=== PATIENT | female | born 1985 | race American Indian/Alaskan Native ===

== ENCOUNTER 2019-11-15 09:16 | Day surgery (SDC) | payer MEDICAID ==
[2019-11-15] MEDS ORDERED: LACTATED RINGERS 1,000 ML IV SCH (10:00)
[2019-11-15] MEDS ORDERED: ONDANSETRON 4 MG/2 ML INJ ONE (11:10)
[2019-11-15] MEDS ORDERED: ONDANSETRON 4 MG/2 ML INJ IV NR (11:12)
[2019-11-15] MEDS ORDERED: fentaNYL 100 MCG/2 ML INJ IV PRN (11:17)
[2019-11-15] MEDS ORDERED: fentaNYL 100 MCG/2 ML INJ IV ONE (11:17)
[2019-11-15] MEDS ORDERED: FAMOTIDINE 20 MG/2 ML INJ IV NR (11:18)
--- NOTE | 2019-11-15 11:19 | Anesthesia Consultation ---
Anesthesia Consult and Med Hx Date of service: 11/15/19 - Airway Anesthetic Teeth Evaluation: Good ROM Head & Neck: Adequate Mental/Hyoid Distance: Adequate Mallampati Class: Class III Intubation Access Assessment: Possibly Difficult - Pulmonary Exam CTA: Yes - Cardiac Exam Cardiac Exam: RRR - Pre-Operative Health Status ASA Pre-Surgery Classification: ASA2 Proposed Anesthetic Plan: General - Pulmonary Hx Smoking: Yes (marijuana) Hx Respiratory Symptoms: No - Cardiovascular System Hx Hypertension: No (BP elevated in preop possibly 2/2 pain) - Central Nervous System CVA: No - Gastrointestinal Hx Gastroesophageal Reflux Disease: No - Endocrine Hx Renal Disease: No Hx Liver Disease: No Hx Insulin Dependent Diabetes: No Hx Non-Insulin Dependent Diabetes: No Hx Thyroid Disease: No - Other Systems Hx Alcohol Use: Yes (Occas) Hx Substance Use: Yes (Marijuana) Hx Obesity: No - Additional Comments Anesthesia Medical History Comments: + N/V w/ most recent emesis this morning.
--- NOTE | 2019-11-15 11:19 | Anesthesia Day of Surgery ---
Anesthesia Day of Surgery - Day of Surgery Patient Examined: Yes Patient H&P Reviewed: Yes Patient is NPO: Yes
[2019-11-15] MEDS ORDERED: SCOPOLAMINE TRANSDERMAL PATCH 72 HR TD NR (12:00)
[2019-11-15] MEDS ORDERED: MIDAZOLAM 2 MG/2 ML INJ IV NR (12:00)
[2019-11-15] MEDS ORDERED: METHYLERGONOVINE MALEATE 0.2 MG/ML VIAL IM ONE (13:06)
[2019-11-15] MEDS ORDERED: HYDROmorphone 1 MG/1 ML INJ ONE (13:09)
[2019-11-15] MEDS ORDERED: PROPOFOL 200 MG/20 ML VIAL IV ONE (13:09)
[2019-11-15] MEDS ORDERED: ROCURONIUM 50 MG/5 ML INJ IV ONE (13:09)
[2019-11-15] MEDS ORDERED: SUCCINYLCHOLINE CHLORIDE 200 MG/10 ML INJ MDV ONE (13:09)
[2019-11-15] MEDS ORDERED: LIDOCAINE MPF (2%) 20 MG/1 ML VIAL 5 ML ONE (13:36)
[2019-11-15] MEDS ORDERED: PHENYLEPHRINE/NS 1,000 MCG/10 ML SYRINGE (OR USE) IV ONE (13:37)
[2019-11-15] MEDS ORDERED: KETOROLAC 30 MG/1 ML INJ ONE (13:52)
[2019-11-15] MEDS ORDERED: SODIUM CHLORIDE 0.9% 1000 ML 1,000 ML ONE (14:03)
--- NOTE | 2019-11-15 14:04 | Post Operative Note ---
Pre-op diagnosis: Incomplete AB Post-op diagnosis: same Findings: Retroverted uterus. Positive POCs noted in suction. Procedure: D&C suction completion for an incomplete AB at 7 weeks and 2 days. Patient taken to the operating room and prepped draped usual fashion. Bimanual exam was done. A 7 Slovak suction catheter selected. A ring forcep used to grasp the anterior lip of the cervix for stabilization. Cervix was adequately dilated for placement of a 7 Slovak catheter which was done without difficulty. Suction curettage was performed until no further products of conception were able to be suctioned out and no more active bleeding was noted. Bimanual exam was done again the uterus felt firm. Ring forceps removed and the procedure was concluded. Patient tolerated the procedure well. All instrument and lap counts were correct. Patient taken to the recovery room in stable condition. Anesthesia: GETA Surgeon: ANITA ROMERO Estimated blood loss: minimal Pathology: list (POCs) Specimen disposition: to lab Condition: stable Disposition: PACU
--- NOTE | 2019-11-15 14:06 | Discharge Summary ---
Providers - Providers Date of discharge: 11/15/19 Attending physician: ANITA ROMERO Hospitalization Procedure: other (suction D&C for incomplete AB) complications: none (except pt with elevated BP here and in office yesterday. No h/o HTN. PT to f/u in office in 1 week in light of this BP.) Discharge diagnosis: other (s/p D&C for SAB) Condition at discharge: Stable Disposition: DC- TO HOME OR SELFCARE Plan - Discharge Medications Prescriptions: Ibuprofen [Motrin 600 MG tab] 600 mg PO Q8H PRN #20 tablet PRN Reason: Pain - Provider Discharge Summary Additional instructions: [] Smoking cessation referral if applicable(refer to patient education folder for contact #) [] Refer to [facility] Booklet Call your doctor immediately for: * Fever > 100.5 * Heavy vaginal bleeding ( >1 pad per hour) * Severe persistent headache * Shortness of breath * Reddened, hot, painful area to leg or breast * Drainage or odor from incision. * Keep incision clean and dry at all times and follow doctor's instructions regarding bathing/showering - Follow up plan Follow up: ANITA ROMERO MD [Staff Physician] - 7 Days
[2019-11-15 15:16] VITALS: BP 128/78
--- NOTE | 2019-11-15 15:41 | Post Anesthesia Evaluation ---
- Post Anesthesia Evaluation Patient Participated: Yes Airway Patent: Yes Stable Respiratory Function: Yes Nausea/Vomiting: No Temp > 96.8F: Yes Pain Manageable: Yes Adequeate Hydration: Yes Anesthesia Complications: No
== END 2019-11-15 09:17 | disposition home or self-care (01) ==
LOC: OR 09:16
PROVIDERS: ATTEND Obstetrics & Gynecology
DX: O03.4 Incomplete spontaneous abortion without complication (principal); G43.909 Migraine, unspecified, not intractable, without status migrainosus; F17.210 Nicotine dependence, cigarettes, uncomplicated; Z79.899 Other long term (current) drug therapy; Z72.89 Other problems related to lifestyle; Z98.890 Other specified postprocedural states
CPT/HCPCS: 59812; 86900; 86901; 88305; J0330; J1170; J1885; J2250; J2370; J2405; J2704; J3010; J7030; J7120; J2210